=== PATIENT | male | born 1960 | race Caucasian/White ===

== ENCOUNTER → 2023-09-04 08:48 | Outpatient (REF) | payer OTHER, SELFPAY | LOC: HWRAD 08:48 | PROVIDERS: ATTENDING PHYSICIAN Internal Medicine Hematology & Oncology; FAMILY PHYSICIAN Family Medicine; REFERRING PHYSICIAN Family Medicine | DX: C61 Malignant neoplasm of prostate (principal); L84 Corns and callosities; M25.572 Pain in left ankle and joints of left foot | CPT/HCPCS: 71260; 73610; 73630; 73660; Q9967 ==

== ENCOUNTER → 2023-09-12 06:23 | Day surgery (SDC) | payer OTHER, SELFPAY | LOC: GI 06:23 | PROVIDERS: ATTENDING PHYSICIAN Specialist | DX: K62.5 Hemorrhage of anus and rectum (principal); R19.4 Change in bowel habit; K55.20 Angiodysplasia of colon without hemorrhage; K63.5 Polyp of colon; Z53.8 Procedure and treatment not carried out for other reasons | CPT/HCPCS: 45385; 88305 ==

== ENCOUNTER → 2023-10-25 06:33 | Day surgery (SDC) | payer OTHER, SELFPAY | LOC: GI 06:33 | PROVIDERS: ATTENDING PHYSICIAN Specialist | DX: Z12.11 Encounter for screening for malignant neoplasm of colon (principal); D12.0 Benign neoplasm of cecum; K55.21 Angiodysplasia of colon with hemorrhage; Z86.010 Personal history of colon polyps; Z80.0 Family history of malignant neoplasm of digestive organs | CPT/HCPCS: 45380; 45382; 88305 ==

== ENCOUNTER → 2024-10-20 14:18 | Outpatient (REF) | payer OTHER, SELFPAY | LOC: RAD 14:18 | PROVIDERS: ATTENDING PHYSICIAN Nurse Practitioner Adult Health; FAMILY PHYSICIAN Family Medicine | DX: C61 Malignant neoplasm of prostate (principal) | CPT/HCPCS: 93971 ==

== ENCOUNTER → 2024-11-16 08:02 | Outpatient (REF) | payer OTHER, SELFPAY | LOC: RAD 08:02 | PROVIDERS: ATTENDING PHYSICIAN Internal Medicine Hematology & Oncology; FAMILY PHYSICIAN Family Medicine | DX: C61 Malignant neoplasm of prostate (principal) | CPT/HCPCS: 71250; 78306; A9503 ==